=== PATIENT | male | born 1995 | race Caucasian/White ===

== ENCOUNTER 2020-06-11 08:14 | Emergency (ER) | payer OTHER ==
[~2020-06-11] VITALS: Ht 180.3 cm; Wt 84.1 kg
[2020-06-11 08:17] VITALS: BP 128/95
== END 2020-06-11 08:58 ==
LOC: ER 08:14
DX: Z04.3 Encounter for examination and observation following other accident (principal); V98.8XXA Other specified transport accidents, initial encounter; Y93.89 Activity, other specified; Y92.89 Other specified places as the place of occurrence of the external cause; Y99.8 Other external cause status
CPT/HCPCS: 99283